=== PATIENT | male | born 1965 | race Caucasian/White ===

== ENCOUNTER 2020-08-03 08:59 | Emergency (ER) | payer OTHER ==
[~2020-08-03] VITALS: Ht 172.7 cm; Wt 74.8 kg
[2020-08-03 09:11] VITALS: BP 145/90
[2020-08-03] MEDS ORDERED: IBUPROFEN 600 MG TABLET ONE (09:36)
--- NOTE | 2020-08-03 09:44 | NUR ---
Patient given written and verbal discharge instructions. Patient verbalizes understanding of instructions. Patient is ambulatory with steady gait. Refuses offer of nursing home placement. Patient given list of available shelters in surrounding area.
[2020-08-03] MEDS ORDERED: IBUPROFEN 600 MG TABLET PO ONE (10:00)
== END 2020-08-03 10:06 | disposition home or self-care (01) ==
LOC: ER 09:06
DX: M79.672 Pain in left foot (principal); M79.671 Pain in right foot; F17.200 Nicotine dependence, unspecified, uncomplicated; Z59.0 Homelessness

== ENCOUNTER 2020-08-07 19:04 | Emergency (ER) | payer OTHER ==
[~2020-08-07] VITALS: Ht 170.2 cm; Wt 74.8 kg
--- NOTE | 2020-08-07 19:28 | NUR ---
[id number] FROM [facility]. C/O R WRIST PAIN. PER PD PATIENT WILL BE RELEASED PER PD. NOT IN CUSTODY, -HOLD, DENIES SI/HI. THE PATIENT RATES R WRIST PAIN 5/10. DENIES NUMBNESS/TINGLING IN THE EXTREMITY. WILL CONTINUE TO MONITOR THE PATIENT.
[2020-08-07] MEDS ORDERED: IBUP-1955 PO (19:33)
--- NOTE | 2020-08-07 19:57 | NUR ---
The patient is alert and oriented x4. Denies pain. Respiration regular and unlabored. Patient discharged to home in stable condition. Written and verbal after care instructions given. Patient verbalizes understanding of instruction.
[2020-08-07 19:59] VITALS: BP 122/76
== END 2020-08-07 19:59 | disposition home or self-care (01) ==
LOC: ER 19:08
DX: S60.812A Abrasion of left wrist, initial encounter (principal); S60.811A Abrasion of right wrist, initial encounter; F31.9 Bipolar disorder, unspecified; F10.10 Alcohol abuse, uncomplicated; F17.200 Nicotine dependence, unspecified, uncomplicated; Y90.9 Presence of alcohol in blood, level not specified; Z79.899 Other long term (current) drug therapy; X58.XXXA Exposure to other specified factors, initial encounter; Y93.89 Activity, other specified; Y92.89 Other specified places as the place of occurrence of the external cause; Y99.8 Other external cause status